=== PATIENT | female | born 1990 ===

== ENCOUNTER 2017-09-07 02:08 | Emergency (ER) | payer MEDICAID ==
[2017-09-07 02:19] VITALS: BP 114/64; PULSE 92; RESP 17; TEMP 98.4; O2SAT 98
--- NOTE | 2017-09-07 02:31 | ED PDOC ---
Arrival/HPI - General Time Seen by Provider: 09/07/17 02:15 Historian: Patient - History of Present Illness Narrative History of Present Illness (Text): 09/07/17 02:15 Ada Hawley is a 27 year old female, who is 21 weeks , who presents to the emergency department complaining of vaginal spotting after having intercourse tonight. Patient also notes that she notices a foreign body protruding from her vagina. Patient denies any fever, chills, chest pain, shortness of breath, nausea, vomiting, diarrhea, urinary symptoms, back pain, neck pain, headache, dizziness, trauma/injury, suicidal/homicidal ideation or any other complaints. Time/Duration: 4-6 hours Severity Level: Mild Activities at Onset: Light Modifying Factors (Text): none Context: Home Past Medical History - Provider Review Nursing Documentation Reviewed: Yes Family/Social History - Physician Review Nursing Documentation Reviewed: Yes Family/Social History: No Known Family HX Allergies/Home Meds Allergies/Adverse Reactions: Allergies azithromycin Allergy (Verified 09/07/17 02:50) RASH Home Medications: Home Meds Medication Instructions Recorded Confirmed No Known Home Med 09/07/17 09/07/17 Review of Systems - Physician Review All systems were reviewed & negative as marked: Yes - Review of Systems Constitutional: absent: Fevers, Night Sweats Eyes: absent: Vision Changes ENT: absent: Hearing Changes Respiratory: absent: SOB Cardiovascular: absent: Chest Pain Gastrointestinal: absent: Abdominal Pain Genitourinary Female: Vaginal Bleeding Musculoskeletal: absent: Arthralgias Skin: absent: Rash, Pruritis, Cellulitis Neurological: absent: Headache Endocrine: absent: Diaphoresis Physical Exam Vital Signs Temp Pulse Resp BP Pulse Ox 09/07/17 02:18 98.4 F 92 H 17 114/64 98 Temperature: Afebrile Blood Pressure: Normal Pulse: Tachycardic Respiratory Rate: Normal Appearance: Positive for: Well-Appearing, Non-Toxic, Comfortable Pain Distress: None Mental Status: Positive for: Alert and Oriented X 3 - Systems Exam Abdomen: No: Tenderness, Distention Genitourinary/Pelvic Exam: Present: Normal External Genitalia, Other (polyp protuding from cervix and vault) Medical Decision Making ED Course and Treatment: 09/07/17 02:15 Impression: 27 year old female complaining of vaginal spotting after having intercourse tonight. Patient also notes that she notices a foreign body protruding from her vagina. Plan: -- Ultrasound -- Reassess and disposition Progress Notes: - RAD Interpretation Radiology Orders: 09/07/17 02:55 AGE [US] Stat - Scribe Statement The provider has reviewed the documentation as recorded by the Scribe Becka Caballero Provider Scribe Attestation: All medical record entries made by the Scribe were at my direction and personally dictated by me. I have reviewed the chart and agree that the record accurately reflects my personal performance of the history, physical exam, medical decision making, and the department course for this patient. I have also personally directed, reviewed, and agree with the discharge instructions and disposition. Disposition/Present on Arrival - Present on Arrival Any Indicators Present on Arrival: No - Disposition Have Diagnosis and Disposition been Completed?: Yes Diagnosis: Cervical polyp Disposition: HOME/ ROUTINE Disposition Time: 04:45 Condition: GOOD Discharge Instructions (ExitCare): Threatened Miscarriage (ED) Additional Instructions: follow up with your ob this am Referrals: Zain Amaya MD [Primary Care Provider] - Follow up with primary Forms: [employer] (Maldivian)
[2017-09-07 02:49] VITALS: BMI 31.6
--- NOTE | 2017-09-07 04:25 | US ---
EXAM: US After First Trimester, Transabdominal CLINICAL HISTORY: 27 years old, female; Signs and symptoms; Lmp or gestational age (in weeks): 04/17/17; Other: Bleeding; ; Additional info: Vaginal bleed TECHNIQUE: Real-time transabdominal obstetrical ultrasound of the maternal pelvis and a second or third trimester with image documentation. COMPARISON: No relevant prior studies available. FINDINGS: Fetus: Single live intrauterine gestation. Heart rate: heart rate of 147 beats per minute. Presentation: Breech. Placenta: Posterior. No placenta previa or abruption. Amniotic fluid: Normal. Anatomy: No gross anomaly is appreciated. BIOMETRICS Gestational age by US: Estimated gestational age of 20 weeks 0 days by measurements. EFW: Estimated weight of 329 g. BPD: 4.7 cm, correlating with 20 weeks 1 day. HC: 17.4 cm, correlating with 19 weeks 6 days. AC: 15.0 cm, correlating with 20 weeks 2 days. FL: 3.2 cm, correlating with 19 weeks 6 days. MATERNAL: Uterus: Unremarkable. No myometrial mass. Cervix: No cervical dilatation or effacement. Cervical length = 3.6cm Free fluid: No free fluid. IMPRESSION: 1. Single live intrauterine gestation.
== END 2017-09-07 04:35 | disposition home or self-care (01) ==
LOC: ED 02:08
DX: O34.42 Maternal care for other abnormalities of cervix, second trimester (principal); N84.1 Polyp of cervix uteri; Z3A.21 21 weeks gestation of pregnancy

== ENCOUNTER 2018-06-08 21:01 | Emergency (ER) | payer SELFPAY ==
[2018-06-08 21:01] VITALS: BMI 31.6
[2018-06-08] MEDS ORDERED: Sodium Chloride 0.9% 1,000 ML IV STA (21:33)
--- NOTE | 2018-06-08 22:23 | ED PDOC ---
History of Present Illness History of Present Illness: Patient is a 27 y/o F presenting with flu like symptoms. She reports 1 day history of myalgias, chills, fever, nausea, and non-productive cough. Denies abdominal pain. Denies chest pain, shortness of breath, neck stiffness, diarrhea/constipation, dysuria, hematuria, vaginal bleeding or discharge, flank pain. HPI: Influenza Time Seen by Provider: 06/08/18 21:33 Chief Complaint: Flu-like Symptoms Past Medical History - Cardiac Hx Cardiac Disorders: No - Pulmonary Hx Respiratory Disorders: No - Neurological Hx Neurological Disorder: No - HEENT Hx HEENT Disorder: No - Renal Hx Renal Disorder: Yes Hx Kidney Stones: Yes - Endocrine/Metabolic Hx Endocrine Disorders: No - Hematological/Oncological Hx Blood Disorders: No - Integumentary Hx Dermatological Disorder: No - Musculoskeletal/Rheumatological Hx Musculoskeletal Disorders: No - Gastrointestinal Hx Gastrointestinal Disorders: No - Genitourinary/Gynecological Hx Genitourinary Disorders: No - Psychiatric Hx Psychophysiologic Disorder: No Hx Substance Use: No - Suicidal Assessment Feels Threatened In Home Enviroment: No Patient Medical History - Psychiatric History Feels Threatened In Home Enviroment: No Family/Social History Family/Social History: Unknown Family HX Smoking Status: Never Smoked Hx Alcohol Use: Yes Hx Substance Use: No Allergies/Home Meds Allergies/Adverse Reactions: Allergies azithromycin Allergy (Verified 06/08/18 21:15) RASH Home Medications: Home Meds Medication Instructions Recorded Confirmed No Known Home Med 09/07/17 06/08/18 Review of Systems - Review of Systems Constitutional: Fevers. absent: Fatigue, Weight Change Eyes: absent: Vision Changes Respiratory: Cough. absent: SOB, Sputum, Wheezing Cardiovascular: absent: Chest Pain Gastrointestinal: absent: Abdominal Pain, Constipation, Diarrhea, Nausea, Vomiting Genitourinary Female: absent: Dysuria, Frequency, Hematuria, Urine Output Changes, Vaginal Bleeding, Vaginal Discharge Musculoskeletal: Arthralgias Skin: absent: Rash Neurological: Headache (mild). absent: Dizziness, Focal Weakness, Gait Changes , Speech Changes, Facial Droop, Disequilibrium Physical Exam Vital Signs Temp Pulse Resp BP Pulse Ox 06/08/18 21:16 102.8 F H 141 H 20 105/71 96 Temperature: Afebrile Blood Pressure: Normal Pulse: Tachycardic Respiratory Rate: Normal Appearance: Positive for: Well-Appearing, Non-Toxic, Comfortable Pain Distress: None Mental Status: Positive for: Alert and Oriented X 3 - Systems Exam Head: Present: Atraumatic, Normocephalic Pupils: Present: PERRL Extroacular Muscles: Present: EOMI Conjunctiva: Present: Normal Ears: Present: NORMAL TM Mouth: Present: Moist Mucous Membranes Pharnyx: No: ERYTHEMA, EXUDATE Nose (External): Present: Atraumatic Nose (Internal): Present: Normal Inspection Neck: Present: Normal Range of Motion. No: Meningeal Signs Respiratory/Chest: Present: Clear to Auscultation, Good Air Exchange. No: Respiratory Distress, Accessory Muscle Use Cardiovascular: Present: Regular Rate and Rhythm, Normal S1, S2. No: Murmurs Abdomen: No: Tenderness, Distention Upper Extremity: Present: Normal Inspection Lower Extremity: Present: Normal Inspection Neurological: Present: GCS=15, CN II-XII Intact, Speech Normal Skin: Present: Warm, Dry. No: Rashes Psychiatric: Present: Alert, Oriented x 3 Medical Decision Making ED Course and Treatment: 06/08/18 22:23 Well appearing with viral illness like symptoms. - RAD Interpretation Radiology Orders: 06/08/18 21:33 CHEST PORTABLE [RAD] Stat - Medication Orders Current Medication Orders: Sodium Chloride (Sodium Chloride 0.9%) 1,000 mls @ 999 mls/hr IV .Q1H1M STA Stop: 06/08/18 22:33 Last Admin: 06/08/18 22:15 Dose: 999 mls/hr eMAR Start Stop Document 06/08/18 22:15 HI (Rec: 06/08/18 22:15 [id number] Intravenous Solution Start Date 06/08/18 Start Time 22:15 Discontinued Medications Ketorolac Tromethamine (Toradol) 30 mg IVP STAT STA Stop: 06/08/18 21:34 Last Admin: 06/08/18 22:16 Dose: 30 mg MAR Pain Assessment Document 06/08/18 22:16 VT (Rec: 06/08/18 22:16 [id number] Pain Reassessment Is this a pain reassessment? No IVP Administration Document 06/08/18 22:16 VT (Rec: 06/08/18 22:16 [id number]) Charges for Administration # of IVP Administrations 1 Disposition/Present on Arrival - Present on Arrival Any Indicators Present on Arrival: No History of DVT/PE: No History of Uncontrolled Diabetes: No Urinary Catheter: No History of Decub. Ulcer: No History Surgical Site Infection Following: None - Disposition Have Diagnosis and Disposition been Completed?: Yes Diagnosis: Viral illness Disposition: HOME/ ROUTINE Disposition Time: 23:02 Patient Plan: Discharge Condition: GOOD Discharge Instructions (ExitCare): Flu, Fever of Unknown Origin Additional Instructions: Motrin or tylenol for fever. Return to ED immediately with any worsening symptoms. Copious fluids Forms: [facility] (Korean)
[2018-06-08 22:34] LABS: BASO # 0.02 K/mm3 (0.0-2.0); BASO % 0.2 % (0.0-3.0); EOS % 0.2 % (1.5-5.0); GRAN # 11.06 (1.4-6.5); GRAN % 87.3 % (50.0-68.0); HEMOGLOBIN 12.9 g/dL (12.0-16.0); LYMPH # 0.9 (1.2-3.4); LYMPH % 6.9 % (22.0-35.0); MEAN CELL VOLUME 84.8 fl (80.0-105.0); MEAN CORPUSCULAR HEMOGLOBIN 28.9 pg (25.0-35.0); MEAN CORPUSCULAR HGB CONC 34.1 g/dl (31.0-37.0); MEAN PLATELET VOLUME 11.1 fl (7.0-11.0); MONO # 0.7 (0.1-0.6); MONO % 5.4 % (1.0-6.0); RBC 4.46 10^6/uL (3.5-6.1); RED CELL DISTRIBUTION WIDTH 12.1 % (11.5-14.5); WHITE BLOOD COUNT 12.7 10^3/ul (4.5-11.0)
[2018-06-08 22:40] LABS: ALB/GLOB RATIO 1.3 (1.1-1.8); ALBUMIN 4.2 g/dL (3.0-4.8); ALT/SGPT 25 U/L (7-56); AST/SGOT 20 U/L (14-36); BLOOD UREA NITROGEN 10 mg/dL (7-21); CALCIUM 9.1 mg/dL (8.4-10.5); GFR AFRICAN-AMERICAN > 60; GFR NON-AFRICAN AMERICAN > 60
[2018-06-08 23:08] VITALS: BP 112/71; TEMP 99.6; O2SAT 99
[2018-06-09 00:43] VITALS: PULSE 89; RESP 16
--- NOTE | 2018-06-09 09:09 | RAD ---
Date of service: 06/08/2018 HISTORY: cough COMPARISON: No prior. FINDINGS: LUNGS: The lungs are well inflated and clear. PLEURA: No significant pleural effusion identified, no pneumothorax apparent. CARDIOVASCULAR: Normal. OSSEOUS STRUCTURES: No significant abnormalities. VISUALIZED UPPER ABDOMEN: Normal. OTHER FINDINGS: None. IMPRESSION: No active pulmonary disease.
== END 2018-06-09 00:42 | disposition home or self-care (01) ==
LOC: ED 21:01
DX: B34.9 Viral infection, unspecified (principal)
CPT/HCPCS: 71045; 80053; 85025; 96374; 99284; J1885; J7030

== ENCOUNTER 2019-03-12 11:28 | Observation (INO) | payer MEDICAID ==
--- NOTE | 2019-03-12 12:17 | ED PDOC ---
Arrival/HPI - General Chief Complaint: ENT Problem Time Seen by Provider: 03/12/19 11:31 Historian: Patient - History of Present Illness Narrative History of Present Illness (Text): 03/12/19 12:18 28 y/o female with no significant PMH presents to the ED for evaluation s/p possible foreign body ingestion. Pt was eating eggplant last night when she felt herself swallow something sharp. When she was washing dishes approx 30min later, she realized that the tip of her knife was missing. Pt believes she may have swallowed the knife piece. She induced vomiting at home but was unable to recover the piece of metal. There was no blood in the vomit. Since that time she has been feeling intermittent sharp generalized abdominal pains. She is unsure if the pains are secondary to anxiety. Pt has not had a bowel movement since the incident, which is typical for her. Denies fever, chills, vomiting, nausea, diarrhea, hematemesis, hemtochezia, melena, SOB, difficulty swallowing, drooling, stridor, or any other associated symptoms. Past Medical History - Provider Review Nursing Documentation Reviewed: Yes - Infectious Disease Hx of Infectious Diseases: None - Cardiac Hx Cardiac Disorders: No - Pulmonary Hx Respiratory Disorders: No - Neurological Hx Neurological Disorder: No - HEENT Hx HEENT Disorder: No - Renal Hx Renal Disorder: Yes Hx Kidney Stones: Yes - Endocrine/Metabolic Hx Endocrine Disorders: No - Hematological/Oncological Hx Blood Disorders: No - Integumentary Hx Dermatological Disorder: No - Musculoskeletal/Rheumatological Hx Musculoskeletal Disorders: No - Gastrointestinal Hx Gastrointestinal Disorders: No - Genitourinary/Gynecological Hx Genitourinary Disorders: No - Psychiatric Hx Psychophysiologic Disorder: No Hx Substance Use: No - Suicidal Assessment Feels Threatened In Home Enviroment: No Family/Social History - Physician Review Nursing Documentation Reviewed: Yes Family/Social History: No Known Family HX Smoking Status: Never Smoked Hx Alcohol Use: Yes Hx Substance Use: No Allergies/Home Meds Allergies/Adverse Reactions: Allergies azithromycin Allergy (Verified 06/08/18 21:15) RASH Home Medications: Home Meds Medication Instructions Recorded Confirmed No Known Home Med 09/07/17 06/08/18 Review of Systems - Physician Review All systems were reviewed & negative as marked: Yes - Review of Systems Constitutional: Normal. absent: Fevers Eyes: Normal. absent: Vision Changes ENT: Sore Throat. absent: Hearing Changes Respiratory: Normal. absent: SOB, Cough Cardiovascular: Normal. absent: Chest Pain, Palpitations, Syncope Gastrointestinal: Abdominal Pain. absent: Stool Changes, Constipation, Diarrhea, Nausea, Vomiting, Appetite Changes, Hematochezia, Hematemesis Genitourinary Female: Normal. absent: Dysuria, Frequency Musculoskeletal: Normal. absent: Back Pain, Neck Pain Skin: Normal. absent: Rash Neurological: Normal. absent: Headache, Dizziness Psychiatric: Anxiety Physical Exam Vital Signs Reviewed: Yes Vital Signs Temp Pulse Resp BP Pulse Ox 03/12/19 11:51 98 F 90 18 118/80 99 Temperature: Afebrile Blood Pressure: Normal Pulse: Regular Respiratory Rate: Normal Appearance: Positive for: Well-Appearing, Non-Toxic, Comfortable Pain Distress: None Mental Status: Positive for: Alert and Oriented X 3 - Systems Exam Head: Present: Atraumatic, Normocephalic Pupils: Present: PERRL Extroacular Muscles: Present: EOMI Conjunctiva: Present: Normal Mouth: Present: Moist Mucous Membranes Pharnyx: Present: Normal. No: ERYTHEMA, EXUDATE, TONSILS ENLARGED, Peritonsilar Swelling, Uvular Deviation, Muffled/Hoarse Voice, Strider, Soft Palate/Uvular Edema, Other (NO tripoding; NO FB visualized) Neck: Present: Normal Range of Motion. No: Meningeal Signs Respiratory/Chest: Present: Clear to Auscultation, Good Air Exchange. No: Respiratory Distress, Accessory Muscle Use Cardiovascular: Present: Regular Rate and Rhythm, Normal S1, S2, Peripheal Pulses Present Abdomen: Present: Normal Bowel Sounds. No: Tenderness, Distention, Peritoneal Signs, Rebound, Guarding Back: Present: Normal Inspection. No: CVA Tenderness Upper Extremity: Present: Normal Inspection, Normal ROM, NORMAL PULSES, Neurovascularly Intact, Capillary Refill < 2s. No: Cyanosis, Edema, Temperature Abnormalties Lower Extremity: Present: Normal ROM Neurological: Present: GCS=15, CN II-XII Intact, Speech Normal, Motor Func Grossly Intact, Normal Sensory Function, Gait Normal Skin: Present: Warm, Dry, Normal Color. No: Rashes Psychiatric: Present: Alert, Oriented x 3, Normal Insight, Normal Concentration, Normal Affect, Normal Mood Medical Decision Making ED Course and Treatment: 03/12/19 12:17 Initial Plan: * CBC, CMP * UA * Soft Tissue Neck XR * CXR * Abdominal XR 13:39 Xrays negative for FB. Bloodwork unremarkable. 14:30 Spoke with surgical appliance fitter who will come to ED to evaluate patient. Call placed to GI branch operations coordinator, Dr. Lacy 14:40 Spoke with the GI fellow, Dr. Zacarias, who states GI will take patient for endoscopy this afternoon. Requests PT/PTT, type and screen. Patient updated with change in disposition. Resting comfortably in stretcher with stable vitals at this time. 14:[address] Ivy who accepted patient for inpatient observation with diagnosis of FB ingestion. - Lab Interpretations Lab Results: 03/12/19 12:30 03/12/19 12:30 Lab Results 03/12/19 12:55: Urine Color yellow, Urine Appearance Clear, Urine pH 6.5, Ur Specific [place] 1.015, Urine Protein Trace H, Urine Glucose (UA) Negative, Urine Ketones Trace H, Urine Blood Trace-intact H, Urine Nitrate Negative, Urine Bilirubin Negative, Urine Urobilinogen 1.0 H, Ur Leukocyte Esterase Negative, Urine RBC 5 - 10 H, Urine WBC 2 - 5, Ur Epithelial Cells 6 - 8 H 03/12/19 12:30: Sodium 138, Potassium 4.4, Chloride 105, Carbon Dioxide 24, Anion Gap 14, BUN 11, Creatinine 0.7, Est GFR ( Amer) > 60, Est GFR (Non- Af Amer) > 60, Random Glucose 88, Calcium 8.8, Total Bilirubin 0.3, AST 21, ALT 14, Alkaline Phosphatase 78, Total Protein 7.8, Albumin 4.3, Globulin 3.5, Albumin/Globulin Ratio 1.2 03/12/19 12:30: WBC 10.2, RBC 4.52, Hgb 12.8, Hct 38.4, MCV 85.0, MCH 28.3, MCHC 33.3, RDW 12.6, Plt Count 272, MPV 11.3 H, Neut % (Auto) 64.8, Lymph % (Auto) 27.8, [place] % (Auto) 6.6 H, Eos % (Auto) 0.6 L, Baso % (Auto) 0.2, Lymph # (Auto) 2.8, [place] # (Auto) 0.7 H, Eos # (Auto) 0.1, Baso # (Auto) 0.02, Absolute Neuts (auto) 6.63 H I have reviewed the lab results: Yes Interpretation: All labs normal - RAD Interpretation Narrative RAD Interpretations (Text): 03/12/19 13:40 Soft Tissue Neck XR: FINDINGS: There is no evidence of foreign body or soft tissue swelling IMPRESSION: Negative study CXR: FINDINGS: LUNGS: Clear. PLEURA: No pneumothorax or pleural fluid seen. CARDIOVASCULAR: No aortic atherosclerotic calcification present. Normal. OSSEOUS STRUCTURES: No significant abnormalities. VISUALIZED UPPER ABDOMEN: Normal. OTHER FINDINGS: None. IMPRESSION: No active disease. No evidence of foreign body Abdominal XR: FINDINGS: BOWEL: Normal. No obstruction. No free air. BONES: Normal. OTHER FINDINGS: None. IMPRESSION: No evidence of foreign body Radiology Orders: 03/12/19 12:09 CHEST TWO VIEWS (PA/LAT) [RAD] Stat ABDOMEN (FLAT PLATE) 1VIEW [RAD] Stat NECK SOFT TISSUE [RAD] Stat Piano Refinisher: Radiologist Disposition/Present on Arrival - Present on Arrival Any Indicators Present on Arrival: No History of DVT/PE: No History of Uncontrolled Diabetes: No Urinary Catheter: No History of Decub. Ulcer: No History Surgical Site Infection Following: None - Disposition Have Diagnosis and Disposition been Completed?: Yes Diagnosis: Foreign body ingestion Disposition: HOSPITALIZED Disposition Time: 14:49 Patient Plan: Observation Condition: GOOD
[2019-03-12 12:54] LABS: ALB/GLOB RATIO 1.2 (1.1-1.8); ALBUMIN 4.3 g/dL (3.0-4.8); ALT/SGPT 14 U/L (7-56); AST/SGOT 21 U/L (14-36); BASO # 0.02 K/mm3 (0.0-2.0); BASO % 0.2 % (0.0-3.0); BLOOD UREA NITROGEN 11 mg/dL (7-21); CALCIUM 8.8 mg/dL (8.4-10.5); EOS # 0.1 (0.0-0.7); EOS % 0.6 % (1.5-5.0); GFR NON-AFRICAN AMERICAN > 60; HEMOGLOBIN 12.8 g/dL (12.0-16.0); LYMPH # 2.8 (1.2-3.4); LYMPH % 27.8 % (22.0-35.0); MEAN CORPUSCULAR HEMOGLOBIN 28.3 pg (25.0-35.0); MEAN CORPUSCULAR HGB CONC 33.3 g/dl (31.0-37.0); MEAN PLATELET VOLUME 11.3 fl (7.0-11.0); MONO # 0.7 (0.1-0.6); MONO % 6.6 % (1.0-6.0); RBC 4.52 10^6/uL (3.5-6.1); RED CELL DISTRIBUTION WIDTH 12.6 % (11.5-14.5); WHITE BLOOD COUNT 10.2 10^3/uL (4.5-11.0)
[2019-03-12 13:16] LABS: PH,URINE 6.5 (4.7-8.0); URINE BILIRUBIN NEGATIVE (NEGATIVE); URINE BLOOD TRACE-INTACT (NEGATIVE); URINE GLUCOSE (UA) NEGATIVE (NEGATIVE); URINE LEUKOCYTE ESTERASE NEGATIVE Leu/uL (NEGATIVE); URINE PROTEIN TRACE mg/dL (<30 mg/dL)
[2019-03-12 13:17] LABS: URINE APPEARANCE CLEAR (CLEAR)
--- NOTE | 2019-03-12 13:38 | RAD ---
Date of service: 03/12/2019 PROCEDURE: Soft tissue neck HISTORY: possible knife tip ingestion, r/o FB COMPARISON: TECHNIQUE: Two views FINDINGS: There is no evidence of foreign body or soft tissue swelling IMPRESSION: Negative study
--- NOTE | 2019-03-12 13:39 | RAD ---
Date of service: 03/12/2019 PROCEDURE: CHEST RADIOGRAPH, 1 VIEW HISTORY: possible knife tip injection, r/o FB COMPARISON: 06/08/2018 FINDINGS: LUNGS: Clear. PLEURA: No pneumothorax or pleural fluid seen. CARDIOVASCULAR: No aortic atherosclerotic calcification present. Normal. OSSEOUS STRUCTURES: No significant abnormalities. VISUALIZED UPPER ABDOMEN: Normal. OTHER FINDINGS: None. IMPRESSION: No active disease. No evidence of foreign body
--- NOTE | 2019-03-12 13:39 | RAD ---
Date of service: 03/12/2019 HISTORY: possible knife tip ingestion, r/o FB COMPARISON: None available. TECHNIQUE: 1 view obtained. FINDINGS: BOWEL: Normal. No obstruction. No free air. BONES: Normal. OTHER FINDINGS: None. IMPRESSION: No evidence of foreign body
--- NOTE | 2019-03-12 14:52 | CP.PCM.CON ---
<Sommer Zacarias - Last Filed: 03/12/19 15:17> History of Present Illness - History of Present Illness History of Present Illness: Gastroenterology Fellow/PGY6 Consult Note 28 year old female with PMH of kidney stones, ovarian cyst, and constipation presenting with throat and abdominal pain. Patient notes consuming eggplant last night with the use of a sharp knife as a cutting utensil. Patient notes sudden onset of neck discomfort and noticed the tip of the knife was missing, estimated to be at least 1cm in length. Shortly after, patient induced vomiting with only food expelled. Denies hematemesis, recurrent vomiting, excessive salivation, shortness of breath, chest pain, melena, hematochezia, or unintentional weight loss. Notes last oral intke of liquid or food to be yesterday during the incident. No prior EGD or colonoscopy. Family History- denies stomach cancer, maternal uncle-colon cancer Social History- denies tobacco or illicit drug use; social alcohol use Surgical History-none Past Patient History - Infectious Disease Hx of Infectious Diseases: None - Past Social History Smoking Status: Never Smoked - CARDIAC Hx Cardiac Disorders: No - PULMONARY Hx Respiratory Disorders: No - NEUROLOGICAL Hx Neurological Disorder: No - HEENT Hx HEENT Problems: No - RENAL Hx Chronic Kidney Disease: Yes Hx Kidney Stones: Yes - ENDOCRINE/METABOLIC Hx Endocrine Disorders: No - HEMATOLOGICAL/ONCOLOGICAL Hx Blood Disorders: No - INTEGUMENTARY Hx Dermatological Problems: No - MUSCULOSKELETAL/RHEUMATOLOGICAL Hx Musculoskeletal Disorders: No - GASTROINTESTINAL Hx Gastrointestinal Disorders: No - GENITOURINARY/GYNECOLOGICAL Hx Genitourinary Disorders: No - PSYCHIATRIC Hx Psychophysiologic Disorder: No Hx Substance Use: No - SURGICAL HISTORY Hx Surgeries: No Meds Allergies/Adverse Reactions: Allergies Allergy/AdvReac Type Severity Reaction Status Date / Time azithromycin Allergy RASH Verified 06/08/18 21:15 Physical Exam - Constitutional Appears: Non-toxic, No Acute Distress - Head Exam Head Exam: ATRAUMATIC, NORMOCEPHALIC - Eye Exam Eye Exam: EOMI, PERRL. absent: Scleral icterus Pupil Exam: PERRL. absent: Miosis, Mydriatic - ENT Exam ENT Exam: Mucous Membranes Moist, Normal Oropharynx - Neck Exam Neck exam: Positive for: Full Rom, Normal Inspection - Respiratory Exam Respiratory Exam: Clear to Auscultation Bilateral. absent: Rales, Rhonchi, Wheezes - Cardiovascular Exam Cardiovascular Exam: RRR, +S1, +S2. absent: Gallop, Rubs - GI/Abdominal Exam GI & Abdominal Exam: Normal Bowel Sounds, Soft, Tenderness. absent: Distended, Firm, Guarding, Organomegaly, Rebound, Rigid Additional comments: diffuse vague discomfort - Extremities Exam Extremities exam: Positive for: normal inspection - Neurological Exam Neurological exam: Alert - Psychiatric Exam Psychiatric exam: Normal Affect, Normal Mood - Skin Skin Exam: Dry, Intact, Normal Color, Warm Results - Vital Signs Recent Vital Signs: Last Vital Signs Temp 98 F 03/12/19 11:51 Pulse 90 03/12/19 11:51 Resp 18 03/12/19 11:51 BP 118/80 03/12/19 11:51 Pulse Ox 99 03/12/19 11:51 - Labs Result Diagrams: 03/12/19 12:30 03/12/19 12:30 Labs: Laboratory Results - last 24 hr 03/12/19 03/12/19 03/12/19 12:30 12:30 12:55 WBC 10.2 RBC 4.52 Hgb 12.8 Hct 38.4 MCV 85.0 MCH 28.3 MCHC 33.3 RDW 12.6 Plt Count 272 MPV 11.3 H Neut % (Auto) 64.8 Lymph % (Auto) 27.8 [place] % (Auto) 6.6 H Eos % (Auto) 0.6 L Baso % (Auto) 0.2 Lymph # (Auto) 2.8 [place] # (Auto) 0.7 H Eos # (Auto) 0.1 Baso # (Auto) 0.02 Absolute Neuts (auto) 6.63 H Sodium 138 Potassium 4.4 Chloride 105 Carbon Dioxide 24 Anion Gap 14 BUN 11 Creatinine 0.7 Est GFR ( Amer) > 60 Est GFR (Non-Af Amer) > 60 Random Glucose 88 Calcium 8.8 Total Bilirubin 0.3 AST 21 ALT 14 Alkaline Phosphatase 78 Total Protein 7.8 Albumin 4.3 Globulin 3.5 Albumin/Globulin Ratio 1.2 Urine Color yellow Urine Appearance Clear Urine pH 6.5 Ur Specific [place] 1.015 Urine Protein Trace H Urine Glucose (UA) Negative Urine Ketones Trace H Urine Blood Trace-intact H Urine Nitrate Negative Urine Bilirubin Negative Urine Urobilinogen 1.0 H Ur Leukocyte Esterase Negative Urine RBC 5 - 10 H Urine WBC 2 - 5 Ur Epithelial Cells 6 - 8 H Assessment & Plan - Assessment and Plan (Free Text) Assessment: 28 year old female with PMH of kidney stones, ovarian cyst, and constipation presenting with throat and abdominal pain. No prior EGD or colonoscopy. Plan: -NPO -proceed with EGD to evaluate -neck/chest/abdominal xrays reviewed- no foreign body noted -surgery on board- follow up recommendations -further recommendations after endoscopic evaluation <Solange Lacy - Last Filed: 03/12/19 15:32> Results - Vital Signs Recent Vital Signs: Last Vital Signs Temp 98 F 03/12/19 11:51 Pulse 90 03/12/19 11:51 Resp 18 03/12/19 11:51 BP 118/80 03/12/19 11:51 Pulse Ox 99 03/12/19 11:51 - Labs Result Diagrams: 03/12/19 12:30 03/12/19 12:30 Labs: Laboratory Results - last 24 hr 03/12/19 03/12/19 03/12/19 12:20 12:30 12:30 WBC 10.2 RBC 4.52 Hgb 12.8 Hct 38.4 MCV 85.0 MCH 28.3 MCHC 33.3 RDW 12.6 Plt Count 272 MPV 11.3 H Neut % (Auto) 64.8 Lymph % (Auto) 27.8 [place] % (Auto) 6.6 H Eos % (Auto) 0.6 L Baso % (Auto) 0.2 Lymph # (Auto) 2.8 [place] # (Auto) 0.7 H Eos # (Auto) 0.1 Baso # (Auto) 0.02 Absolute Neuts (auto) 6.63 H PT 13.0 H INR 1.17 APTT 41.8 H Sodium 138 Potassium 4.4 Chloride 105 Carbon Dioxide 24 Anion Gap 14 BUN 11 Creatinine 0.7 Est GFR ( Amer) > 60 Est GFR (Non-Af Amer) > 60 Random Glucose 88 Calcium 8.8 Total Bilirubin 0.3 AST 21 ALT 14 Alkaline Phosphatase 78 Total Protein 7.8 Albumin 4.3 Globulin 3.5 Albumin/Globulin Ratio 1.2 Urine Color Urine Appearance Urine pH Ur Specific [place] Urine Protein Urine Glucose (UA) Urine Ketones Urine Blood Urine Nitrate Urine Bilirubin Urine Urobilinogen Ur Leukocyte Esterase Urine RBC Urine WBC Ur Epithelial Cells 03/12/19 12:55 WBC RBC Hgb Hct MCV MCH MCHC RDW Plt Count MPV Neut % (Auto) Lymph % (Auto) [place] % (Auto) Eos % (Auto) Baso % (Auto) Lymph # (Auto) [place] # (Auto) Eos # (Auto) Baso # (Auto) Absolute Neuts (auto) PT INR APTT Sodium Potassium Chloride Carbon Dioxide Anion Gap BUN Creatinine Est GFR ( Amer) Est GFR (Non-Af Amer) Random Glucose Calcium Total Bilirubin AST ALT Alkaline Phosphatase Total Protein Albumin Globulin Albumin/Globulin Ratio Urine Color yellow Urine Appearance Clear Urine pH 6.5 Ur Specific [place] 1.015 Urine Protein Trace H Urine Glucose (UA) Negative Urine Ketones Trace H Urine Blood Trace-intact H Urine Nitrate Negative Urine Bilirubin Negative Urine Urobilinogen 1.0 H Ur Leukocyte Esterase Negative Urine RBC 5 - 10 H Urine WBC 2 - 5 Ur Epithelial Cells 6 - 8 H Attending/Attestation - Attestation I have personally seen and examined this patient.: Yes I have fully participated in the care of the patient.: Yes I have reviewed all pertinent clinical information: Yes Notes (Text): 03/12/19 15:30 I have seen and examined the pt with the GI fellow. This is a 28 yo F with PMH of kidney stones, ovarian cyst, and constipation presenting with throat and abd ominal pain after eating dinner yesterday, with suspicion for foreign body ingestion (piece of knife missing). No prior EGD or colonoscopy. CXR, neck xray and abdominal xray unremarkable. Plan: -remain npo -plan for EGD today -further recs EGD findings -d/w pt
--- NOTE | 2019-03-12 15:10 | CP.PCM.CON ---
History of Present Illness - History of Present Illness History of Present Illness: Surgery Consult Note for Dr. Gomez Consult: Foreign body ingestion HPI: 28 year old female, past medical history of hemorrhoids, kidney stone, ovarian cyst, and constipation, presents to the emergency department after suspected ing estion of 1cm knife tip. Patient states last night she was eating egg plant for dinner when she swallowed something that felt unusual. When washing the dishes, she noticed the tip of a cutting knife missing and concerned that she swallowed said tip. Patient induced emesis which only showed digested food particles, no hematemsis or foreign body noted. Patient denies any BRBPR, however has had BRBPR in past 2/2 internal hemorrhoid. Last PO intake was coffee this morning. No history of EGD or colonoscopy. Patient denies abdominal pain, nausea, vomiting, diarrhea. ROS otherwise negative except as stated above. PMH: See above PSH: Denies FH: Maternal uncles-colon, prostate cancer, Maternal aunt-breast cancer SH: Denies tobacco, alcohol, and drug use ALL: Azithromycin Meds: Melatonin for sleep Review of Systems - Constitutional Constitutional: absent: Chills, Fever, Weight Loss - EENT Eyes: absent: Blurred Vision, Change in Vision Nose/Mouth/Throat: absent: Nasal Congestion, Nasal Discharge - Cardiovascular Cardiovascular: absent: Chest Pain, Dyspnea - Respiratory Respiratory: absent: Cough, Dyspnea, Hemoptysis - Gastrointestinal Gastrointestinal: Constipation. absent: Abdominal Pain, Coffee Ground Emesis, Diarrhea, Dysphagia, Hematemesis, Hematochezia, Melena, Nausea, Vomiting - Genitourinary Genitourinary: absent: Difficulty Urinating, Dysuria - Musculoskeletal Musculoskeletal: absent: Back Pain, Neck Pain - Integumentary Integumentary: absent: Bleeding Lesions, Changing Lesions - Neurological Neurological: absent: Dizziness, Numbness - Psychiatric Psychiatric: Anxiety. absent: Depression Past Patient History - Infectious Disease Hx of Infectious Diseases: None - Past Social History Smoking Status: Never Smoked - CARDIAC Hx Cardiac Disorders: No - PULMONARY Hx Respiratory Disorders: No - NEUROLOGICAL Hx Neurological Disorder: No - HEENT Hx HEENT Problems: No - RENAL Hx Chronic Kidney Disease: Yes Hx Kidney Stones: Yes - ENDOCRINE/METABOLIC Hx Endocrine Disorders: No - HEMATOLOGICAL/ONCOLOGICAL Hx Blood Disorders: No - INTEGUMENTARY Hx Dermatological Problems: No - MUSCULOSKELETAL/RHEUMATOLOGICAL Hx Musculoskeletal Disorders: No - GASTROINTESTINAL Hx Gastrointestinal Disorders: No - GENITOURINARY/GYNECOLOGICAL Hx Genitourinary Disorders: No - PSYCHIATRIC Hx Psychophysiologic Disorder: No Hx Substance Use: No - SURGICAL HISTORY Hx Surgeries: No Meds Allergies/Adverse Reactions: Allergies Allergy/AdvReac Type Severity Reaction Status Date / Time azithromycin Allergy RASH Verified 06/08/18 21:15 Physical Exam - Constitutional Appears: Well, Non-toxic, No Acute Distress - Head Exam Head Exam: ATRAUMATIC, NORMAL INSPECTION, NORMOCEPHALIC - Eye Exam Eye Exam: EOMI Pupil Exam: PERRL - ENT Exam ENT Exam: Mucous Membranes Moist - Neck Exam Neck exam: Positive for: Normal Inspection - Respiratory Exam Respiratory Exam: NORMAL BREATHING PATTERN. absent: Wheezes, Respiratory Distress - Cardiovascular Exam Cardiovascular Exam: REGULAR RHYTHM, +S1, +S2 - GI/Abdominal Exam GI & Abdominal Exam: Normal Bowel Sounds, Soft. absent: Distended, Guarding, Rebound, Tenderness - Rectal Exam Rectal Exam: NORMAL INSPECTION. absent: Black Stool, Bloody Stool, Hemorrhoids - Neurological Exam Neurological exam: Alert, Oriented x3 - Psychiatric Exam Psychiatric exam: Anxious - Skin Skin Exam: Dry, Intact, Normal Color, Warm Results - Vital Signs Recent Vital Signs: Last Vital Signs Temp 98 F 03/12/19 11:51 Pulse 90 03/12/19 11:51 Resp 18 03/12/19 11:51 BP 118/80 03/12/19 11:51 Pulse Ox 99 03/12/19 11:51 - Labs Result Diagrams: 03/12/19 12:30 03/12/19 12:30 Labs: Laboratory Results - last 24 hr 03/12/19 03/12/19 03/12/19 12:30 12:30 12:55 WBC 10.2 RBC 4.52 Hgb 12.8 Hct 38.4 MCV 85.0 MCH 28.3 MCHC 33.3 RDW 12.6 Plt Count 272 MPV 11.3 H Neut % (Auto) 64.8 Lymph % (Auto) 27.8 [place] % (Auto) 6.6 H Eos % (Auto) 0.6 L Baso % (Auto) 0.2 Lymph # (Auto) 2.8 [place] # (Auto) 0.7 H Eos # (Auto) 0.1 Baso # (Auto) 0.02 Absolute Neuts (auto) 6.63 H Sodium 138 Potassium 4.4 Chloride 105 Carbon Dioxide 24 Anion Gap 14 BUN 11 Creatinine 0.7 Est GFR ( Amer) > 60 Est GFR (Non-Af Amer) > 60 Random Glucose 88 Calcium 8.8 Total Bilirubin 0.3 AST 21 ALT 14 Alkaline Phosphatase 78 Total Protein 7.8 Albumin 4.3 Globulin 3.5 Albumin/Globulin Ratio 1.2 Urine Color yellow Urine Appearance Clear Urine pH 6.5 Ur Specific [place] 1.015 Urine Protein Trace H Urine Glucose (UA) Negative Urine Ketones Trace H Urine Blood Trace-intact H Urine Nitrate Negative Urine Bilirubin Negative Urine Urobilinogen 1.0 H Ur Leukocyte Esterase Negative Urine RBC 5 - 10 H Urine WBC 2 - 5 Ur Epithelial Cells 6 - 8 H Assessment & Plan - Assessment and Plan (Free Text) Assessment: 28F w/ possible foreign body ingestion Plan: Patient NPO for EGD w/ GI EGD - no foreign body, mild esophagitis Further GI recommendations - CTAP w/wo contrast If no foreign body noted on CT scan, no acute surgical intervention indicated at this present time Patient cleared for discharge from surgical standpoint D/w Dr. Jason Venegas PGY1
[2019-03-12 15:20] LABS: INR 1.17; PARTIAL THROMBOPLASTIN TIME 41.8 Seconds (26.9-38.3)
--- NOTE | 2019-03-12 15:43 | CP.PCM.HP ---
<Cherrie Mccoy - Last Filed: 03/13/19 10:27> History of Present Illness - History of Present Illness History of Present Illness: HISTORY & PHYSICAL NOTE FOR HOSPITALIST SERVICE- DR. BIJU Mccoy PGY1 28 y/o F with no PMH presented to ED with complaints of "scratchy" feeling in throat after she believed to have swallowed the tip of knife that she reports was about [id number] in size. She reports yesterday, around 4pm, she was eating soft eggplant and noted a sharp, scratchy feeling go down her esophagus when she swallowed. She reports she hasn't noticed any blood from mouth/throat after she ate food. About 30 min after, she noticed a knife that was missing a [id number] tip while washing dishes and believed she had swallowed that piece. She induced vom iting two times in an attempt to discharge the piece however didn't notice the piece or any blood in her emesis. She reports later eating [place] food without abdominal pain. She arrived to ED today as she has been feeling "sharp" nonspecific abdominal pain in the L upper/lower quadrant. She hasn't had a bowel movement. She denies fevers, chills, headache, dizziness, chest pain, palpitations, shortness of breath, nausea, vomiting, hematemsis, diarrhea, dysuria, hematuria, hematochezia PMH: Denies All: Azithromycin- hives/angioedema PSH: wisdom teeth x 2 SH: Denies ETOH, tobacco, illicit drugs use FH: M: gastritis, F: DM2 Meds: melatonin Present on Admission - Present on Admission Any Indicators Present on Admission: No Review of Systems - Review of Systems Review of Systems: per ROS Past Patient History - Infectious Disease Hx of Infectious Diseases: None - Past Social History Smoking Status: Never Smoked - CARDIAC Hx Cardiac Disorders: No - PULMONARY Hx Respiratory Disorders: No - NEUROLOGICAL Hx Neurological Disorder: No - HEENT Hx HEENT Problems: No - RENAL Hx Chronic Kidney Disease: Yes Hx Kidney Stones: Yes - ENDOCRINE/METABOLIC Hx Endocrine Disorders: No - HEMATOLOGICAL/ONCOLOGICAL Hx Blood Disorders: No - INTEGUMENTARY Hx Dermatological Problems: No - MUSCULOSKELETAL/RHEUMATOLOGICAL Hx Musculoskeletal Disorders: No - GASTROINTESTINAL Hx Gastrointestinal Disorders: No - GENITOURINARY/GYNECOLOGICAL Hx Genitourinary Disorders: No - PSYCHIATRIC Hx Psychophysiologic Disorder: No Hx Substance Use: No - SURGICAL HISTORY Hx Surgeries: No Meds Allergies/Adverse Reactions: Allergies Allergy/AdvReac Type Severity Reaction Status Date / Time azithromycin Allergy RASH Verified 06/08/18 21:15 Physical Exam - Constitutional Appears: Well, Non-toxic, No Acute Distress - Head Exam Head Exam: NORMOCEPHALIC - Eye Exam Eye Exam: EOMI, Normal appearance - ENT Exam ENT Exam: Mucous Membranes Moist, Normal Exam Additional comments: no blood in oropharynx - Neck Exam Neck exam: Positive for: Normal Inspection. Negative for: Tenderness - Respiratory Exam Respiratory Exam: Clear to Auscultation Bilateral, NORMAL BREATHING PATTERN - Cardiovascular Exam Cardiovascular Exam: REGULAR RHYTHM, +S1, +S2 - GI/Abdominal Exam GI & Abdominal Exam: Soft, Tenderness (mild LUQ) - Extremities Exam Extremities exam: Positive for: normal inspection. Negative for: calf tenderness - Back Exam Back exam: NORMAL INSPECTION - Neurological Exam Neurological exam: Alert, Oriented x3 - Psychiatric Exam Psychiatric exam: Normal Affect, Normal Mood - Skin Skin Exam: Dry, Intact, Warm Results - Vital Signs Recent Vital Signs: Last Vital Signs Temp 98 F 03/12/19 11:51 Pulse 90 03/12/19 11:51 Resp 18 03/12/19 11:51 BP 118/80 03/12/19 11:51 Pulse Ox 99 03/12/19 11:51 - Labs Result Diagrams: 03/12/19 12:30 03/12/19 12:30 Labs: Laboratory Results - last 24 hr 03/12/19 03/12/19 03/12/19 12:20 12:30 12:30 WBC 10.2 RBC 4.52 Hgb 12.8 Hct 38.4 MCV 85.0 MCH 28.3 MCHC 33.3 RDW 12.6 Plt Count 272 MPV 11.3 H Neut % (Auto) 64.8 Lymph % (Auto) 27.8 [place] % (Auto) 6.6 H Eos % (Auto) 0.6 L Baso % (Auto) 0.2 Lymph # (Auto) 2.8 [place] # (Auto) 0.7 H Eos # (Auto) 0.1 Baso # (Auto) 0.02 Absolute Neuts (auto) 6.63 H PT 13.0 H INR 1.17 APTT 41.8 H Sodium 138 Potassium 4.4 Chloride 105 Carbon Dioxide 24 Anion Gap 14 BUN 11 Creatinine 0.7 Est GFR ( Amer) > 60 Est GFR (Non-Af Amer) > 60 Random Glucose 88 Calcium 8.8 Total Bilirubin 0.3 AST 21 ALT 14 Alkaline Phosphatase 78 Total Protein 7.8 Albumin 4.3 Globulin 3.5 Albumin/Globulin Ratio 1.2 Urine Color Urine Appearance Urine pH Ur Specific [place] Urine Protein Urine Glucose (UA) Urine Ketones Urine Blood Urine Nitrate Urine Bilirubin Urine Urobilinogen Ur Leukocyte Esterase Urine RBC Urine WBC Ur Epithelial Cells 03/12/19 12:55 WBC RBC Hgb Hct MCV MCH MCHC RDW Plt Count MPV Neut % (Auto) Lymph % (Auto) [place] % (Auto) Eos % (Auto) Baso % (Auto) Lymph # (Auto) [place] # (Auto) Eos # (Auto) Baso # (Auto) Absolute Neuts (auto) PT INR APTT Sodium Potassium Chloride Carbon Dioxide Anion Gap BUN Creatinine Est GFR ( Amer) Est GFR (Non-Af Amer) Random Glucose Calcium Total Bilirubin AST ALT Alkaline Phosphatase Total Protein Albumin Globulin Albumin/Globulin Ratio Urine Color yellow Urine Appearance Clear Urine pH 6.5 Ur Specific [place] 1.015 Urine Protein Trace H Urine Glucose (UA) Negative Urine Ketones Trace H Urine Blood Trace-intact H Urine Nitrate Negative Urine Bilirubin Negative Urine Urobilinogen 1.0 H Ur Leukocyte Esterase Negative Urine RBC 5 - 10 H Urine WBC 2 - 5 Ur Epithelial Cells 6 - 8 H Assessment & Plan - Assessment and Plan (Free Text) Assessment: 28 y/o F with no PMH admitted for emergency endoscopy s/p suspected sharp foreign body ingestion Plan: Suspected foreign body ingestion Pt to undergo endoscopy Keep NPO until procedure f/u GI recs GI/Surgery following Start LR@75 DVT/GI PPx: SCD Case reviewed with Dr. Biju Mccoy PGY1 <Aminta Ivy - Last Filed: 03/13/19 10:34> Results - Vital Signs Recent Vital Signs: Last Vital Signs Temp 98.2 F 03/12/19 17:57 Pulse 78 03/12/19 18:09 Resp 18 03/12/19 18:09 BP 105/68 03/12/19 18:09 Pulse Ox 97 03/12/19 17:57 - Labs Result Diagrams: 03/12/19 12:30 03/12/19 12:30 Labs: Laboratory Results - last 24 hr 03/12/19 03/12/19 03/12/19 12:20 12:30 12:30 WBC 10.2 RBC 4.52 Hgb 12.8 Hct 38.4 MCV 85.0 MCH 28.3 MCHC 33.3 RDW 12.6 Plt Count 272 MPV 11.3 H Neut % (Auto) 64.8 Lymph % (Auto) 27.8 [place] % (Auto) 6.6 H Eos % (Auto) 0.6 L Baso % (Auto) 0.2 Lymph # (Auto) 2.8 [place] # (Auto) 0.7 H Eos # (Auto) 0.1 Baso # (Auto) 0.02 Absolute Neuts (auto) 6.63 H PT 13.0 H INR 1.17 APTT 41.8 H Sodium 138 Potassium 4.4 Chloride 105 Carbon Dioxide 24 Anion Gap 14 BUN 11 Creatinine 0.7 Est GFR ( Amer) > 60 Est GFR (Non-Af Amer) > 60 Random Glucose 88 Calcium 8.8 Total Bilirubin 0.3 AST 21 ALT 14 Alkaline Phosphatase 78 Total Protein 7.8 Albumin 4.3 Globulin 3.5 Albumin/Globulin Ratio 1.2 Urine Color Urine Appearance Urine pH Ur Specific [place] Urine Protein Urine Glucose (UA) Urine Ketones Urine Blood Urine Nitrate Urine Bilirubin Urine Urobilinogen Ur Leukocyte Esterase Urine RBC Urine WBC Ur Epithelial Cells Blood Type Antibody Screen BBK History Checked 03/12/19 03/12/19 12:55 15:20 WBC RBC Hgb Hct MCV MCH MCHC RDW Plt Count MPV Neut % (Auto) Lymph % (Auto) [place] % (Auto) Eos % (Auto) Baso % (Auto) Lymph # (Auto) [place] # (Auto) Eos # (Auto) Baso # (Auto) Absolute Neuts (auto) PT INR APTT Sodium Potassium Chloride Carbon Dioxide Anion Gap BUN Creatinine Est GFR ( Amer) Est GFR (Non-Af Amer) Random Glucose Calcium Total Bilirubin AST ALT Alkaline Phosphatase Total Protein Albumin Globulin Albumin/Globulin Ratio Urine Color yellow Urine Appearance Clear Urine pH 6.5 Ur Specific [place] 1.015 Urine Protein Trace H Urine Glucose (UA) Negative Urine Ketones Trace H Urine Blood Trace-intact H Urine Nitrate Negative Urine Bilirubin Negative Urine Urobilinogen 1.0 H Ur Leukocyte Esterase Negative Urine RBC 5 - 10 H Urine WBC 2 - 5 Ur Epithelial Cells 6 - 8 H Blood Type O NEGATIVE Antibody Screen Negative BBK History Checked No verified bt Attending/Attestation - Attestation I have personally seen and examined this patient.: Yes I have fully participated in the care of the patient.: Yes I have reviewed all pertinent clinical information: Yes Notes (Text): Attending note; Patient seen and examined with resident in the ER. Patient is alert and awake. Not in any acute distress. Patient is a 28 year old female with a past medical history of nephrolithiasis, UTI, ovarian cysts, constipation, and obesity is presented to ED with complaints of "scratchy" feeling in throat after she believed to have swallowed the tip of knife that she reports was about [id number] in size. She reports yesterday, around 4pm, she was eating soft eggplant and noted a sharp, scratchy feeling go down her esophagus when she swallowed. patient was admitted for discomfort in the throat. Currently denies any Hematemesis or melena. Denies any nausea, vomiting. Denies any abdominal pain. Denies any fevers, chills. Patient was evaluated in the ER. Case discussed with GI in detail. Abdominal x-ray, chest x-ray and the neck x- ray did not show any foreign body. Currently patient is n.p.o.. Waiting for endoscopy. Will follow up with GI closely post endoscopy.
[2019-03-12] MEDS ORDERED: Lactated Ringer's 1,000 ML IV SCH (15:45)
[2019-03-12] MEDS ORDERED: Propofol 10 mg/ml Inj (20 ML) ONE (16:04)
[2019-03-12] MEDS ORDERED: Sodium Chloride 0.9% 1,000 ML IV SCH (16:30)
[2019-03-12 18:27] VITALS: RESP 18; TEMP 98.2; O2SAT 97; BMI 34.9
[2019-03-12 18:32] VITALS: BP 105/68; PULSE 78
--- NOTE | 2019-03-13 07:31 | CP.PCM.DIS ---
<Vaughn Hoffmann - Last Filed: 03/13/19 07:21> Provider - Provider Date of Admission: 03/12/19 14:56 Attending physician: Aminta Ivy MD Consults: 03/12/19 14:23 General Surgery Consult Stat Comment: Consulting Provider: Walt Gomez Consulting Physician: Walt Gomez Reason for Consult: FB ingestion 03/12/19 14:37 Gastroenterology Consult Stat Comment: Consulting Provider: Solange Lacy Consulting Physician: Solange Lacy Reason for Consult: Possible FB ingestion Time Spent in preparation of Discharge (in minutes): 45 Hospital Course - Lab Results Lab Results: Most Recent Lab Values WBC 10.2 10^3/uL (4.5-11.0) 03/12/19 12:30 RBC 4.52 10^6/uL (3.5-6.1) 03/12/19 12:30 Hgb 12.8 g/dL (12.0-16.0) 03/12/19 12:30 Hct 38.4 % (36.0-48.0) 03/12/19 12:30 MCV 85.0 fl (80.0-105.0) 03/12/19 12:30 MCH 28.3 pg (25.0-35.0) 03/12/19 12:30 MCHC 33.3 g/dl (31.0-37.0) 03/12/19 12:30 RDW 12.6 % (11.5-14.5) 03/12/19 12:30 Plt Count 272 10^3/uL (120.0-450.0) 03/12/19 12:30 MPV 11.3 fl (7.0-11.0) H 03/12/19 12:30 Neut % (Auto) 64.8 % (50.0-68.0) 03/12/19 12:30 Lymph % (Auto) 27.8 % (22.0-35.0) 03/12/19 12:30 [place] % (Auto) 6.6 % (1.0-6.0) H 03/12/19 12:30 Eos % (Auto) 0.6 % (1.5-5.0) L 03/12/19 12:30 Baso % (Auto) 0.2 % (0.0-3.0) 03/12/19 12:30 Lymph # (Auto) 2.8 (1.2-3.4) 03/12/19 12:30 [place] # (Auto) 0.7 (0.1-0.6) H 03/12/19 12:30 Eos # (Auto) 0.1 (0.0-0.7) 03/12/19 12:30 Baso # (Auto) 0.02 K/mm3 (0.0-2.0) 03/12/19 12:30 Absolute Neuts (auto) 6.63 (1.4-6.5) H 03/12/19 12:30 PT 13.0 SECONDS (9.4-12.5) H 03/12/19 12:20 INR 1.17 03/12/19 12:20 APTT 41.8 Seconds (26.9-38.3) H 03/12/19 12:20 Sodium 138 mmol/L (132-148) 03/12/19 12:30 Potassium 4.4 mmol/L (3.6-5.0) 03/12/19 12:30 Chloride 105 mmol/L (98-107) 03/12/19 12:30 Carbon Dioxide 24 mmol/L (21-33) 03/12/19 12:30 Anion Gap 14 (10-20) 03/12/19 12:30 BUN 11 mg/dL (7-21) 03/12/19 12:30 Creatinine 0.7 mg/dl (0.7-1.2) 03/12/19 12:30 Est GFR ( Amer) > 60 03/12/19 12:30 Est GFR (Non-Af Amer) > 60 03/12/19 12:30 Random Glucose 88 mg/dL (70-110) 03/12/19 12:30 Calcium 8.8 mg/dL (8.4-10.5) 03/12/19 12:30 Total Bilirubin 0.3 mg/dL (0.2-1.3) 03/12/19 12:30 AST 21 U/L (14-36) 03/12/19 12:30 ALT 14 U/L (7-56) 03/12/19 12:30 Alkaline Phosphatase 78 U/L (38-126) 03/12/19 12:30 Total Protein 7.8 g/dL (5.8-8.3) 03/12/19 12:30 Albumin 4.3 g/dL (3.0-4.8) 03/12/19 12:30 Globulin 3.5 gm/dL 03/12/19 12:30 Albumin/Globulin Ratio 1.2 (1.1-1.8) 03/12/19 12:30 Urine Color yellow (YELLOW) 03/12/19 12:55 Urine Appearance Clear (CLEAR) 03/12/19 12:55 Urine pH 6.5 (4.7-8.0) 03/12/19 12:55 Ur Specific [place] 1.015 (1.005-1.035) 03/12/19 12:55 Urine Protein Trace mg/dL (<30 mg/dL) H 03/12/19 12:55 Urine Glucose (UA) Negative mg/dL (NEGATIVE) 03/12/19 12:55 Urine Ketones Trace mg/dL (NEGATIVE) H 03/12/19 12:55 Urine Blood Trace-intact (NEGATIVE) H 03/12/19 12:55 Urine Nitrate Negative (NEGATIVE) 03/12/19 12:55 Urine Bilirubin Negative (NEGATIVE) 03/12/19 12:55 Urine Urobilinogen 1.0 E.U./dL (<1 E.U./dL) H 03/12/19 12:55 Ur Leukocyte Esterase Negative Ian/uL (NEGATIVE) 03/12/19 12:55 Urine RBC 5 - 10 /hpf (0-2) H 03/12/19 12:55 Urine WBC 2 - 5 /hpf (0-6) 03/12/19 12:55 Ur Epithelial Cells 6 - 8 /hpf (0-5) H 03/12/19 12:55 Blood Type O NEGATIVE 03/12/19 15:20 Antibody Screen Negative 03/12/19 15:20 BBK History Checked No verified bt 03/12/19 15:20 - Hospital Course Hospital Course: Patient is a 28 year old female with a past medical history of nephrolithiasis, UTI, ovarian cysts, constipation, and obesity who was admitted for evaluation and treatment of "a scratchy" feeling in throat after she believed she swallowed the tip of knife. General surgery was consulted who recommended no acute surgical intervention. GI was consulted who recommended emergent EGD. Patient underwent an emergency endoscopy which revealed mildly severe esophagitis, antral gastritis, with no foreign body noted. GI recommended CT abdomen and pelvis without contrast and if negative patient was stable for discharge. However, patient refused the aforementioned CT scan for fear of radiation. Extensive patient education and counseling was provided as to the risks and benefits of attaining the CT scan and the reasoning behind needing it prior to a safe discharge. Patient desired to leave against medical advice. P atient was educated on the risks and benefits of leaving at this time without being medically cleared. Patient both understands and appreciates that leaving against medical advice can increase his risk of both morbidity and mortality. Furthermore, the patient is instructed to return to the emergency room for evaluation of intractable of new or worsening symptoms including but not limited to headache, fever, chills, dizziness, chest pain, shortness of breath, abdominal pain, nausea, vomiting, diarrhea, constipation, and urinary symptoms. This is a brief summary of the patients hospital course. Please see patient chart for full details. Discharge Diagnoses: Mildly severe esophagitis Antral gastritis Obesity Hx of UTI Hx of nephrolithiasis Hx of ovarian cysts Imaging During Hospital Stay: Soft Tissue Neck/Chest/Abdominal xrays- no foreign body noted Discharge Exam - Additional Findings Additional findings: - Constitutional Appears: Well, Non-toxic, No Acute Distress - Head Exam Head Exam: NORMOCEPHALIC - Eye Exam Eye Exam: EOMI, Normal appearance - ENT Exam ENT Exam: Mucous Membranes Moist, Normal Exam Additional comments: no blood in oropharynx - Neck Exam Neck exam: Positive for: Normal Inspection. Negative for: Tenderness - Respiratory Exam Respiratory Exam: Clear to Auscultation Bilateral, NORMAL BREATHING PATTERN - Cardiovascular Exam Cardiovascular Exam: REGULAR RHYTHM, +S1, +S2 - GI/Abdominal Exam GI & Abdominal Exam: Soft, Tenderness (mild LUQ), no guarding, no rebound tenderness - Extremities Exam Extremities exam: Positive for: normal inspection. Negative for: calf tenderness - Back Exam Back exam: NORMAL INSPECTION, no midline or paraspinal tenderness - Neurological Exam Neurological exam: Alert, Oriented x3 - Psychiatric Exam Psychiatric exam: Normal Affect, Normal Mood - Skin Skin Exam: Dry, Intact, Warm Discharge Plan - Follow Up Plan Condition: GOOD Disposition: AGAINST MEDICAL ADVICE Referrals: Solange Lacy MD [Staff Provider] - <Aminta Ivy - Last Filed: 03/13/19 10:30> Provider - Provider Date of Admission: 03/12/19 14:56 Attending physician: Aminta Ivy MD Consults: 03/12/19 14:23 General Surgery Consult Stat Comment: Consulting Provider: Walt Gomez Consulting Physician: Walt Gomez Reason for Consult: FB ingestion 03/12/19 14:37 Gastroenterology Consult Stat Comment: Consulting Provider: Solange Lacy Consulting Physician: Solange Lacy Reason for Consult: Possible FB ingestion Hospital Course - Lab Results Lab Results: Most Recent Lab Values WBC 10.2 10^3/uL (4.5-11.0) 03/12/19 12:30 RBC 4.52 10^6/uL (3.5-6.1) 03/12/19 12:30 Hgb 12.8 g/dL (12.0-16.0) 03/12/19 12:30 Hct 38.4 % (36.0-48.0) 03/12/19 12:30 MCV 85.0 fl (80.0-105.0) 03/12/19 12:30 MCH 28.3 pg (25.0-35.0) 03/12/19 12:30 MCHC 33.3 g/dl (31.0-37.0) 03/12/19 12:30 RDW 12.6 % (11.5-14.5) 03/12/19 12:30 Plt Count 272 10^3/uL (120.0-450.0) 03/12/19 12:30 MPV 11.3 fl (7.0-11.0) H 03/12/19 12:30 Neut % (Auto) 64.8 % (50.0-68.0) 03/12/19 12:30 Lymph % (Auto) 27.8 % (22.0-35.0) 03/12/19 12:30 [place] % (Auto) 6.6 % (1.0-6.0) H 03/12/19 12:30 Eos % (Auto) 0.6 % (1.5-5.0) L 03/12/19 12:30 Baso % (Auto) 0.2 % (0.0-3.0) 03/12/19 12:30 Lymph # (Auto) 2.8 (1.2-3.4) 03/12/19 12:30 [place] # (Auto) 0.7 (0.1-0.6) H 03/12/19 12:30 Eos # (Auto) 0.1 (0.0-0.7) 03/12/19 12:30 Baso # (Auto) 0.02 K/mm3 (0.0-2.0) 03/12/19 12:30 Absolute Neuts (auto) 6.63 (1.4-6.5) H 03/12/19 12:30 PT 13.0 SECONDS (9.4-12.5) H 03/12/19 12:20 INR 1.17 03/12/19 12:20 APTT 41.8 Seconds (26.9-38.3) H 03/12/19 12:20 Sodium 138 mmol/L (132-148) 03/12/19 12:30 Potassium 4.4 mmol/L (3.6-5.0) 03/12/19 12:30 Chloride 105 mmol/L (98-107) 03/12/19 12:30 Carbon Dioxide 24 mmol/L (21-33) 03/12/19 12:30 Anion Gap 14 (10-20) 03/12/19 12:30 BUN 11 mg/dL (7-21) 03/12/19 12:30 Creatinine 0.7 mg/dl (0.7-1.2) 03/12/19 12:30 Est GFR ( Amer) > 60 03/12/19 12:30 Est GFR (Non-Af Amer) > 60 03/12/19 12:30 Random Glucose 88 mg/dL (70-110) 03/12/19 12:30 Calcium 8.8 mg/dL (8.4-10.5) 03/12/19 12:30 Total Bilirubin 0.3 mg/dL (0.2-1.3) 03/12/19 12:30 AST 21 U/L (14-36) 03/12/19 12:30 ALT 14 U/L (7-56) 03/12/19 12:30 Alkaline Phosphatase 78 U/L (38-126) 03/12/19 12:30 Total Protein 7.8 g/dL (5.8-8.3) 03/12/19 12:30 Albumin 4.3 g/dL (3.0-4.8) 03/12/19 12:30 Globulin 3.5 gm/dL 03/12/19 12:30 Albumin/Globulin Ratio 1.2 (1.1-1.8) 03/12/19 12:30 Urine Color yellow (YELLOW) 03/12/19 12:55 Urine Appearance Clear (CLEAR) 03/12/19 12:55 Urine pH 6.5 (4.7-8.0) 03/12/19 12:55 Ur Specific [place] 1.015 (1.005-1.035) 03/12/19 12:55 Urine Protein Trace mg/dL (<30 mg/dL) H 03/12/19 12:55 Urine Glucose (UA) Negative mg/dL (NEGATIVE) 03/12/19 12:55 Urine Ketones Trace mg/dL (NEGATIVE) H 03/12/19 12:55 Urine Blood Trace-intact (NEGATIVE) H 03/12/19 12:55 Urine Nitrate Negative (NEGATIVE) 03/12/19 12:55 Urine Bilirubin Negative (NEGATIVE) 03/12/19 12:55 Urine Urobilinogen 1.0 E.U./dL (<1 E.U./dL) H 03/12/19 12:55 Ur Leukocyte Esterase Negative Ian/uL (NEGATIVE) 03/12/19 12:55 Urine RBC 5 - 10 /hpf (0-2) H 03/12/19 12:55 Urine WBC 2 - 5 /hpf (0-6) 03/12/19 12:55 Ur Epithelial Cells 6 - 8 /hpf (0-5) H 03/12/19 12:55 Blood Type O NEGATIVE 03/12/19 15:20 Antibody Screen Negative 03/12/19 15:20 BBK History Checked No verified bt 03/12/19 15:20 Attending/Attestation - Attestation I have personally seen and examined this patient.: Yes I have fully participated in the care of the patient.: Yes I have reviewed all pertinent clinical information, including history, physical exam and plan: Yes Notes (Text): Attending note; Patient seen and examined with resident in the ER this evening. patient was admitted for discomfort in the throat. Patient stated that she accidentally swallow a piece of metal knife. Currently denies any Hematemesis or melena. Denies any nausea, vomiting. Denies any abdominal pain. Denies any fevers, chills. Patient was evaluated in the ER. Case discussed with GI in detail. Abdominal x-ray, chest x-ray and the neck x- ray did not show any foreign body. Status post endoscopy did not show any foreign body. Patient refused CT abdomen and pelvis. Patient left AGAINST MEDICAL ADVICE later after endoscopy.
== END 2019-03-12 21:25 | disposition left against medical advice (07) ==
LOC: ED 11:28 → ERH 14:56 → 5RNO 17:35
PROVIDERS: ADMIT Internal Medicine; ATTEND Internal Medicine
DX: K20.9 Esophagitis, unspecified (principal); K29.70 Gastritis, unspecified, without bleeding; N83.209 Unspecified ovarian cyst, unspecified side; K59.00 Constipation, unspecified; K64.8 Other hemorrhoids; E66.9 Obesity, unspecified; Z68.34 Body mass index [BMI] 34.0-34.9, adult; Z87.440 Personal history of urinary (tract) infections; Z87.442 Personal history of urinary calculi; Z80.3 Family history of malignant neoplasm of breast; Z83.3 Family history of diabetes mellitus
CPT/HCPCS: 43235; 70360; 71045; 74018; 80053; 81001; 81025; 85025; 85610; 85730; 86850; 86900; 99283; G0378; J2001; J2704; J3010; J7040